=== PATIENT | male | born 1980 | race Caucasian/White ===

== ENCOUNTER → 2019-04-24 | Outpatient (CLI) | payer OTHER ==
[~2019-04-24] MED LIST: ACET500T68 PO
--- NOTE | 2019-04-24 11:23 | PAIN ---
DATE OF SERVICE: 04/24/2019 INITIAL CONSULTATION FOR PAIN CLINIC CHIEF COMPLAINT: Low back and left lower extremity pain. HISTORY OF PRESENT ILLNESS: The patient is a 38-year-old male who presents with history of pain in the low back, left leg for several years, worse over the past 1 year. Increasing pain in posterior gluteus, radiating in the posterior thigh and posterior calf on the left side. The patient reports it is worse with walking, standing, changing positions, better with sitting or lying down, but does awaken him from sleep at least once a night. The patient reports it does not affect his bowel or bladder control, but does affect his ability to walk with significant fatigability in the left leg, but no actual motor loss. The patient has had chiropractic treatment, physical therapies in the past, which were not significantly helpful. Trigger point injections which did help in 2016, also previous surgery in 2007 with injections in 2011 and radiofrequency ablation in 2011, all of which helped to some extent, but nothing long lasting. The patient is taking Percocet, which helped in the past, but has not had it for several years as well. The patient reports the pain is constant, shooting, radiating into the low back and the left lower extremity as described, burning and aching at times; again worse with activity, walking, standing; better with sitting or lying down. The patient rates his disability rating from 0-10, 10 being the worst, is a 6 with family home responsibilities, social activity and sexual behavior, 8 with recreation, 7 with occupational activities, 4 with self-care and life support activities. The patient did have an MRI scan that is dated 05/01/2015, showing L5-S1 left paracentral lateral recess disk protrusion contacting the transitioning nerve roots with moderate left neural foraminal narrowing. The patient has a more recent MRI scan, which is pending at time of this dictation. PAST MEDICAL HISTORY: Significant for arthritis, previous microdiskectomy in 2007, wisdom teeth extraction, fractured jaw and pilonidal cyst removed. CURRENT MEDICATIONS: Include [id number] Tylenol. ALLERGIES: The patient has no known drug allergies. FAMILY HISTORY: Significant for no major medical problems or conditions that he is aware of. SOCIAL HISTORY: The patient does not smoke. Does chew tobacco. Has about 3 alcoholic drinks a month on average. Does not use any illegal, illicit or recreational drugs. He is , lives with his spouse, has 2 children living at home, is on active duty. Lives in [place], [place]. REVIEW OF SYSTEMS: The patient's review of systems is positive for those items mentioned in history of present illness. All systems reviewed and otherwise negative. It is complete, full and well documented on the patient's chart. PHYSICAL EXAMINATION: VITAL SIGNS: The patient's blood pressure 129/87, pulse 71, respirations 16, temperature 97.7 degrees Fahrenheit, height is 74 inches, weight is 281 pounds. GENERAL: The patient is awake, alert, oriented, appropriate, very pleasant demeanor. HEENT: Head shows normocephalic, atraumatic. Extraocular movements are intact and symmetrical. Oral cavity; mucous membranes moist and pink. Dentition is intact. NECK: Shows anterior throat supple without palpable lymphadenopathy noted. Swallow reflex symmetrical. CHEST: Shows normal on inspection. Breath sounds clear to auscultation bilaterally. HEART: Shows S1, S2 clear. No murmurs auscultated. ABDOMEN: Soft, nontender, nondistended. No palpable organomegaly is noted. No rebound or guarding demonstrated. BACK: Shows spine grossly in the midline. Normal appearing thoracic kyphosis and lumbar lordotic curvature. Well-healed surgical scars noted in the lumbar distribution. Lumbar paraspinous muscle shows symmetrical on inspection, on palpation shows some moderate tenderness diffusely bilaterally, but only diffusely without significant radiation. The patient has good rotational motion of lumbar spine, both laterally as well as extension and flexion without significant difficulty. EXTREMITIES: The patient's lower extremities show deep tendon reflexes at 2+ in patellar and 1+ tendo-calcaneus tendons. Motor exam is strong with 5/5 dorsiflexion, extension, quadriceps and hamstring flexion, symmetrical and equal bilaterally. The patient's peripheral pulses are 1+ posterior tibial. No peripheral edema is noted. Lower extremities are warm and dry to touch, equal in color and appearance. Straight leg raise noted to be mildly positive on the left with about 40-45 degrees leg raise, which is decreased with knee flexion, right side is negative. Gaenslen and Lonnie tests are negative bilaterally. The patient is able to stand, stand on his toes, has difficulty with balance, walking with a normal appearing gait, does not appear to favor the right or left lower extremity significantly, not using any assistive devices to ambulate. SKIN: Shows warm and dry, good turgor. No edema. No sores, rashes or bruising throughout. IMPRESSION: 1. This is a 38-year-old male with long history of low back pain, status post lumbar diskectomy in 2007, now with persistent radicular pain in the left lower extremity, in L5-S1 dermatomal distribution. 2. MRI scan as noted. 3. History of arthritis. PLAN: Options were discussed with the patient including conservative medical managements, physical therapies and interventional techniques and he would like to pursue interventional techniques as he has had success with these in the past. We discussed a left L5-S1 transforaminal injection using fluoroscopic guidance using description as well as anatomical models to describe the procedure. Risks were discussed as well. The patient would like to proceed with this, he will wait for preauthorization from his insurance provider and the patient will continue to do stretching and strengthening exercises in the meantime and once approval is at maintaining, we will have him return for left L5-S1 transforaminal injection at that time. MARISSA GUTIERREZ MD DR: EDWARD/john JOB#: [id number] / [id number]
== END | disposition home or self-care (01) ==
LOC: PNCL 09:05
PROVIDERS: ATTEND Anesthesiology
DX: M54.5 Low back pain (principal); M79.605 Pain in left leg; M19.90 Unspecified osteoarthritis, unspecified site; Z98.890 Other specified postprocedural states; Z79.899 Other long term (current) drug therapy
CPT/HCPCS: G0463

== ENCOUNTER → 2019-05-03 | Outpatient (CLI) | payer OTHER ==
[~2019-05-03] MED LIST changes: +BUPIVACAINE MPF 0.25% 10 ML VIAL. ONE; +IOHEXOL 180 MG/ML 10 ML VIAL. ONE; +methylPREDNISolone ACETATE 80 MG/ML VIAL. ONE
--- NOTE | 2019-05-03 11:26 | PAIN ---
DATE OF SERVICE: 05/03/2019 PROGRESS NOTE FOR PAIN CLINIC DIAGNOSES: Lumbar radiculopathy with lumbar degenerative disk disease. HISTORY OF PRESENT ILLNESS: The patient is a 38-year-old male who returns for followup status post initial evaluation and preauthorization for left transforaminal injection at L5-S1. The patient reports still significant pain in the low back, left lower extremity, posterior gluteus, posterior thigh, posterior calf, radiating with walking, standing, changing positions, better with sitting or lying down, does not awaken him from sleep at night. The patient reports the pain is shooting and becoming more constant with activity, rates a 9 on a scale of 10 at its worst over the past week, 7 on average, 5 at its least and is a 5 today. The patient reports no new motor or sensory deficits, no new bowel or bladder incontinence or other complaints. PHYSICAL EXAMINATION: VITAL SIGNS: The patient's blood pressure is 138/85, pulse 76, respirations 18, temperature 98.3 degrees Fahrenheit, height is 74 inches, weight is 278 pounds. GENERAL: The patient is awake, alert, oriented, appropriate, very pleasant demeanor. HEENT: Shows normocephalic, atraumatic. Extraocular movements are intact and symmetrical. Oral cavity: Mucous membranes moist and pink. Dentition is intact. NECK: Shows anterior throat supple without palpable lymphadenopathy noted. Swallow reflex symmetrical. CHEST: Shows normal on inspection. Breath sounds clear to auscultation bilaterally. HEART: Shows S1, S2 clear. No murmurs auscultated. ABDOMEN: Soft, nontender, nondistended. No palpable organomegaly is noted. No rebound or guarding demonstrated. BACK: Shows spine grossly in the midline. Normal appearing thoracic kyphosis, some minor flattening of lumbar lordotic curvature with well-healed surgical scar in the lumbar distribution. The patient's paraspinous musculature shows symmetrical on inspection, on palpation shows some moderate tenderness diffusely bilaterally, but only diffusely without significant radiation. EXTREMITIES: The patient's lower extremities show deep tendon reflexes 2+ in the patellar, 1+ tendo-calcaneus tendons. Motor exam is approximately 4 on a scale of 5 on the left dorsiflexion, extension, 5/5 on the right. Peripheral pulses are 1+ posterior tibia. No peripheral edema is noted bilaterally. Options were discussed with the patient. The patient's old chart was reviewed as his current medication regimen updated. Current review of systems updated today as well. We will proceed with a lumbar left-sided transforaminal injection at L5-S1 today with fluoroscopic guidance. Risks were again discussed including, but not limited to bleeding, infection, possibility of epidural hematoma, subsequent neurologic compromise, dural puncture, headaches, spinal cord and/or nerve damage, side effects of steroid medication, exposure to fluoroscopy, potential injection of the vertebral artery at that level and permanent ischemic damage as well as poor results regarding pain control. The patient understands and wished to proceed. The patient will return to clinic in approximately 2 weeks for followup. He was counseled on return appointment, activity level and side effects to be aware of. DIAGNOSES: Lumbar radiculopathy with lumbar degenerative disk disease. PROCEDURE: Left-sided L5-S1 transforaminal injection using C-arm fluoroscopic guidance under sterile prep and drape using local anesthetic, a 22-gauge Ernesto-tipped needle with stylet. MEDICATION ADMINISTERED: Depo-Medrol 80 mg plus 2 mL of 0.25% bupivacaine and 1.5 mL of contrast with good spread medially into the epidural space as well as laterally along the nerve root. No uptake or washout with digital subtraction noted. CONDITION AT DISCHARGE: Stable. The patient tolerated the procedure well, had no complications. MARISSA GUTIERREZ MD DR: EDWARD/john JOB#: [id number] / [id number]
== END ==
LOC: PNCL 08:55
PROVIDERS: ATTEND Anesthesiology
DX: M51.16 Intervertebral disc disorders with radiculopathy, lumbar region (principal)
CPT/HCPCS: 64483; J1040; J3490; Q9965

== ENCOUNTER → 2019-06-04 | Outpatient (CLI) | payer OTHER ==
[~2019-06-04] MED LIST changes: -BUPIVACAINE MPF 0.25% 10 ML VIAL. ONE; -IOHEXOL 180 MG/ML 10 ML VIAL. ONE; -methylPREDNISolone ACETATE 80 MG/ML VIAL. ONE
--- NOTE | 2019-06-04 11:24 | PAIN ---
DATE OF SERVICE: 06/04/2019 PROGRESS NOTE FOR PAIN CLINIC DIAGNOSES: Lumbar radiculopathy with lumbar degenerative disk disease. HISTORY OF PRESENT ILLNESS: The patient is a 38-year-old male who returns for followup status post lumbar epidural steroid injection transforaminal approach at left L5-S1 x 1. The patient reports about a 70% improvement in his left leg. He has very minimal pain and now, his main complaint is low back pain radiating into the lower extremity, occasionally into the posterior gluteus, posterior thigh on the left, but only occasionally, not every day. The patient reports it is only worse with increase in activity as he has been doing recently as he is active . The patient reports the pain is 8 on a scale of 10 at its worst over the past week, 7 on average, 5 at its least and is a 7 today. The patient reports it is dull and constant in the back, occasionally in the left lower extremity with the leg is doing much better after the transforaminal injection. The patient reports no new motor or sensory deficits, no new bowel or bladder incontinence or other complaints, better with sitting or lying down, does not awake him from sleep at night, worse with walking, standing, changing positions. PHYSICAL EXAMINATION: VITAL SIGNS: The patient's blood pressure 126/89, pulse 80, respirations 16, temperature 98.0 degrees Fahrenheit, height 74 inches, weight is 288 pounds. GENERAL: The patient is awake, alert, oriented, appropriate, very pleasant demeanor. HEENT: Shows normocephalic, atraumatic. Extraocular movements are intact and symmetrical. Oral cavity: Mucous membranes moist and pink. Dentition is intact. NECK: Shows anterior throat supple without palpable lymphadenopathy noted. Swallow reflex symmetrical. CHEST: Shows normal on inspection. Breath sounds are clear bilaterally. HEART: Shows S1, S2 clear. No murmurs auscultated. ABDOMEN: Soft, nontender, nondistended. BACK: Shows spine grossly in the midline. Lumbar paraspinous muscle shows symmetrical on inspection, with palpation shows some moderate tenderness diffusely bilaterally, but only diffusely without radiation. The patient has good rotational motion of lumbar spine, both laterally as well as extension and flexion without difficulty. EXTREMITIES: The patient's lower extremities show deep tendon reflexes 2+ in the patellar, 1+ tendo-calcaneus tendons. Motor exam is strong with 4 on a scale of 5 with left dorsiflexion, extension, 5/5 on the right. Peripheral pulses are 1+ posterior tibia. No peripheral edema is noted bilaterally. Options were discussed with the patient. The patient's old chart was reviewed as his current medication regimen updated. Current review of systems updated today as well. We will preauthorize the patient for a second injection as a translaminar lumbar epidural steroid injection at L5-S1. He still has some clinical radiculopathy as well as low back pain bilaterally. The patient will continue doing stretching and strengthening exercises in the meantime and once approval is obtained, we will follow up for second lumbar epidural steroid injection at L5-S1 at this time. MARISSA GUTIERREZ MD DR: EDWARD/john JOB#: [id number] / [id number]
== END | disposition home or self-care (01) ==
LOC: PNCL 08:50
PROVIDERS: ATTEND Anesthesiology
DX: M51.16 Intervertebral disc disorders with radiculopathy, lumbar region (principal)
CPT/HCPCS: G0463

== ENCOUNTER → 2019-06-18 | Outpatient (CLI) | payer OTHER ==
[~2019-06-18] MED LIST changes: +IOHEXOL 180 MG/ML 10 ML VIAL. ONE; +LIDOCAINE 1% PF 2 ML VIAL. ONE; +methylPREDNISolone ACETATE 40 MG/ML VIAL. ONE; +methylPREDNISolone ACETATE 80 MG/ML VIAL. ONE
--- NOTE | 2019-06-18 10:25 | PAIN ---
DATE OF SERVICE: 06/18/2019 PROGRESS NOTE FOR PAIN CLINIC DIAGNOSES: Lumbar radiculopathy with lumbar degenerative disk disease. HISTORY OF PRESENT ILLNESS: The patient is a 38-year-old male who returns for followup status post lumbar epidural steroid injection and transforaminal approach x 1 with excellent improvement of 70% better in the left lower extremity. Now chief complaint is low back and pain across low back into the right and left lower extremity. The patient has been approved for a lumbar epidural steroid injection as requested after his last visit, reports still significant pain in the low back, more on the right leg than the left, rated at 8 on a scale of 10 at its worst over the past week, 7 on average and a 6 at its least and is a 6 today. The patient reports it is dull, becoming more constant in the low back and leg. Initially, he was doing much better with greater distance walking, doing work activities, and household activities with greater ease and comfort. The patient reports sleeping well at night. No new motor or sensory deficits, no new bowel or bladder incontinence or other complaints. PHYSICAL EXAMINATION: VITAL SIGNS: The patient's blood pressure 141/96, pulse 84, respirations 18, temperature 97.5 degrees Fahrenheit, height 74 inches, weight is 288 pounds. GENERAL: The patient is awake, alert, oriented, appropriate, very pleasant demeanor. HEENT: Shows normocephalic, atraumatic. Extraocular movements are intact and symmetrical. Oral cavity: Mucous membranes moist and pink. Dentition is intact. NECK: Shows anterior throat supple without palpable lymphadenopathy noted. Swallow reflex symmetrical. CHEST: Shows normal on inspection. Breath sounds clear to auscultation bilaterally. HEART: Shows S1, S2 clear. No murmurs auscultated. ABDOMEN: Soft, nontender, nondistended. No palpable organomegaly is noted. BACK: Shows spine grossly in the midline. Normal appearing thoracic kyphosis and lumbar lordotic curvature. Lumbar paraspinous muscle shows symmetrical on inspection, on palpation shows some moderate tenderness diffusely, but only diffusely in the low lumbar distribution without radiation. EXTREMITIES: The patient's lower extremities show deep tendon reflexes at 2+ in the patellar, 1+ tendo-calcaneus tendons. Motor exam is approximately 4 on a scale of 5 on the left and 5/5 on the right, but intact. Peripheral pulses are 1+ posterior tibia. No peripheral edema is noted bilaterally. Options were discussed with the patient. The patient's old chart was reviewed as his current medication regimen updated. Current review of systems updated today as well. We will proceed with a second in a series of lumbar epidural steroid injection today with fluoroscopic guidance. Risks were again discussed including, but not limited to bleeding, infection, possibility of epidural hematoma, subsequent neurological compromise, dural puncture, headaches, spinal cord and/or nerve damage, side effects of steroid medication and poor results regarding pain control. The patient understands and wished to proceed. The patient will return to clinic in approximately 2 weeks for followup. He was counseled as to return appointment, activity level and side effects to be aware of. DIAGNOSIS: Lumbar radiculopathy with lumbar degenerative disk disease. PROCEDURE: Lumbar epidural steroid injection, translaminar approach L5-S1 level using C-arm fluoroscopic guidance under sterile prep and drape using local anesthetic. MEDICATION INJECTED: A total of 120 mg Depo-Medrol plus 10 mL of preservative-free normal saline and 2 mL of contrast. CONDITION AT DISCHARGE: Stable. The patient tolerated the procedure well, had no complications. MARISSA GUTIERREZ MD DR: EDWARD/john JOB#: [id number] / [id number]
== END ==
LOC: PNCL 08:31
PROVIDERS: ATTEND Anesthesiology
DX: M51.16 Intervertebral disc disorders with radiculopathy, lumbar region (principal)
CPT/HCPCS: 62323; J1030; J1040; Q9965

== ENCOUNTER → 2019-07-02 | Outpatient (CLI) | payer OTHER ==
[~2019-07-02] MED LIST changes: -IOHEXOL 180 MG/ML 10 ML VIAL. ONE; -LIDOCAINE 1% PF 2 ML VIAL. ONE; -methylPREDNISolone ACETATE 40 MG/ML VIAL. ONE; -methylPREDNISolone ACETATE 80 MG/ML VIAL. ONE
--- NOTE | 2019-07-02 10:16 | PAIN ---
DATE OF SERVICE: 07/02/2019 PROGRESS NOTE FOR PAIN CLINIC DIAGNOSES: Lumbar radiculopathy with lumbar degenerative disk disease. HISTORY OF PRESENT ILLNESS: The patient is a 38-year-old male who returns for followup status post lumbar epidural steroid injection x 1 and transforaminal injection x 1. The patient reports the lumbar epidural steroid injection decreased the pain about 70% in the low back and right lower extremity. The patient reports doing much better, increasing activity with greater ease and comfort, doing walking distances, work activities, household activities, traveling with greater ease and comfort, very pleased with his progress. He is sleeping well at night. Reports the pain is minimal, rated at 5 on a scale of 10 at its worst over the past week, 3 on average, 2 at its least and is a 2 today. The patient reports it is dull and aching in the low back, but almost completely gone in the right lower extremity. The patient reports no new motor or sensory deficits, no new bowel or bladder incontinence or other complaints. PHYSICAL EXAMINATION: VITAL SIGNS: The patient's blood pressure is 157/99, pulse 83, respirations 18, temperature 98.3 degrees Fahrenheit, height is 74 inches, weight is 296 pounds. GENERAL: The patient is awake, alert, oriented, appropriate, very pleasant demeanor. HEENT: Shows normocephalic, atraumatic. Extraocular movements are intact and symmetrical. Oral cavity: Mucous membranes are moist and pink. Dentition is intact. NECK: Shows anterior throat supple without palpable lymphadenopathy noted. Swallow reflex symmetrical. CHEST: Shows normal on inspection. Breath sounds are clear bilaterally. HEART: Shows S1, S2 clear. No murmurs auscultated. ABDOMEN: Soft, nontender, nondistended. No palpable organomegaly is noted. No rebound or guarding demonstrated. BACK: Shows spine grossly in the midline. Normal appearing thoracic kyphosis and lumbar lordotic curvature. Lumbar paraspinous muscle shows symmetrical on inspection, with palpation shows some mild tenderness only in the low lumbar distribution and only very mild, without atrophy or hypertrophy without trigger points, without radiation. The patient has full rotational motion of lumbar spine, both laterally as well as extension and flexion without significant difficulty. EXTREMITIES: Lower extremities show deep tendon reflexes 2+ in the patellar, 1+ tendo-calcaneus tendons. Motor exam remains strong with mostly 4 on a scale of 5 with left dorsiflexion, extension, but 5/5 quadriceps and hamstring flexion and 5/5 on the right throughout. Peripheral pulses are 1+ posterior tibial. No peripheral edema is noted bilaterally. Options were discussed with the patient. The patient's old chart was reviewed as his current medication regimen updated. Current review of systems updated today as well. We will proceed with holding any further injections at this time as he is doing quite a bit better like increase his activity as tolerated, give this more time and continue doing stretching and strength exercises with low back and will return to clinic at this time on as needed basis. MARISSA GUTIERREZ MD DR: EDWARD/john JOB#: [id number] / [id number]
== END | disposition home or self-care (01) ==
LOC: PNCL 08:38
PROVIDERS: ATTEND Anesthesiology
DX: M51.16 Intervertebral disc disorders with radiculopathy, lumbar region (principal)
CPT/HCPCS: G0463